=== PATIENT | male | born 1955 | race Caucasian/White ===

== ENCOUNTER 2019-08-24 14:33 | Inpatient (IN) | payer OTHER ==
[~2019-08-24] VITALS: Ht 190.5 cm; Wt 97.1 kg
[2019-08-24 14:34] VITALS: BP 162/111
[2019-08-24 14:46] LABS: ABSOLUTE NEUTROPHILS 7.6 thou/uL (1.4-8.2); BASOPHILS 0.9 % (0.0-2.0); EOSINOPHILS 1.4 % (0.0-3.0); HEMATOCRIT 50.7 % (42.0-52.0); HEMOGLOBIN 16.9 gm/dL (14.0-18.0); MCH 30.7 pg (26.0-34.0); MCHC 33.3 g/dL (28.0-37.0); MCV 92.3 fL (80.0-100.0); MONOCYTES 6.6 % (1.0-8.0); PLATELET COUNT 234 thou/uL (150-400); POLYS 67.1 % (36.0-66.0); RBC 5.49 mil/uL (4.50-6.00); RDW 15.4 % (10.5-14.5); WBC 11.3 thou/uL (4.0-11.0)
[2019-08-24 14:53] LABS: ANION GAP 8 mmol/L (7-16); BUN 19 mg/dL (7-18); CALCIUM 9.6 mg/dL (8.5-10.1); CHLORIDE 101 mmol/L (98-107); CO2 30 mmol/L (21-32); CREATININE 1.1 mg/dL (0.7-1.3); GLUCOSE 97 mg/dL (74-106); POTASSIUM 4.1 mmol/L (3.5-5.1); SODIUM 139 mmol/L (136-145)
[2019-08-24 15:02] LABS: TROPONIN-I <0.06 ng/mL (<0.06)
[2019-08-24 17:20] VITALS: BP 162/111
[2019-08-24 18:25] VITALS: BP 150/117
[2019-08-24 19:47] VITALS: BP 134/91
[2019-08-24] MEDS ORDERED: LISINOPRIL2.5 MG PO (20:37)
[2019-08-24] MEDS ORDERED: LOVASTATIN 20 M20 MG PO (20:38)
[2019-08-24] MEDS ORDERED: TOPROL XL100 MG PO (20:38)
[2019-08-24] MEDS ORDERED: PROAIR HFA8.5 GM INH (20:39)
[2019-08-24] MEDS ORDERED: DICYCLOMINE HCL20 MG PO (20:40)
[2019-08-24] MEDS ORDERED: MAGNESIUM250 M1 PO (20:41)
[2019-08-24] MEDS ORDERED: ASA81BEC PO (20:55)
[2019-08-24 21:33] VITALS: BP 141/110
--- NOTE | 2019-08-24 22:19 | NUR ---
PATIENT TRANSFERED FROM [facility] WITH C/O SOA, COUGH, AND CHF EXACERBATION. PATIENT PLACED ON ENHANCE PRECAUTIONS FOR COVID R/O. ASSUMED CARE OF PATIENT AT 1900. PATIENT BEGAN SHIFT ON RA WITH OXYGEN SATURATION 97% AND ABOVE. AT APPROXIMATELY 2210 PATIENT C/O SOA AFTER AMBULATING TO RESTROOM. APPLIED 2L OXYGEN VIA NC AND MEASURED OXYGEN SATUATIONS AT 95%. PATIENT ADMITTED TO ER WITH BP 150/117. ADMISSION ASSESSMENT B/P WAS 134/91. REASSESSMENT OF B/P TWO HOURS LATER WAS 140/110. OBTAINED A ONE TIME ORDER FOR 5MG LOPRESSOR AND ADMINISTERED ORDERED. WILL CONTINUE TO MONITOR.
[2019-08-25] VITALS (26 sets, daily range): BP systolic 103–147; BP diastolic 65–111
--- NOTE | 2019-08-25 04:12 | NUR ---
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 PT ASYMPTOMATIC WITH BP ELEVATED. CARDIZEM BOLUS GIVEN AND GTT INITIATED. PT CONTINUES TO DENY SYMPTOMS. WILL CONTINUE TO MONITOR.
--- NOTE | 2019-08-25 04:22 | NUR ---
AT 0235, PT HAD A 20 BEAT RUN OF VTACH; VS 147/111, P 105, 93% ON RA, RR 22. PT REPORTED WAKING UP FEELING SOB AND NEEDING TO CLEAR SECRETIONS IN HIS THROAT. STRUGGLED TO CLEAR AND SAT ON SIDE OF BED, MAKING HIM FEEL SLIGHTLY DIZZY. HR JUMPED TO 160-180 FOR ABOUT A MINUTE BEFORE GRADUALLY DROPPING TO 130'S THEN LOW 100'S. PT REPORTED FEELING SLIGHTLY BETTER, BUT STILL SOB. EVITA BRUCE NOTIFIED OF EVENTS AND OBTAINED ORDERS FOR CXR, MUCINEX, ALBUTEROL, MAGNESIUM, AND LABS. HR CONTINUED TO BE IRREGULAR BUT 95-100, PT DENIED FURTHER COMPLAINTS.
[2019-08-25 05:24] LABS: CALCIUM 9.1 mg/dL (8.5-10.1); CREATININE 1.3 mg/dL (0.7-1.3); POTASSIUM 3.5 mmol/L (3.5-5.1)
[2019-08-25 06:47] LABS: HEMOGLOBIN 16.4 gm/dL (14.0-18.0); MCHC 33.6 g/dL (28.0-37.0); MCV 92.5 fL (80.0-100.0); RBC 5.3 mil/uL (4.50-6.00)
[2019-08-25 09:59] LABS: CALCIUM 9.3 mg/dL (8.5-10.1); CREATININE 1.3 mg/dL (0.7-1.3); POTASSIUM 3.6 mmol/L (3.5-5.1)
--- NOTE | 2019-08-25 11:09 | EKG ---
[facility] [place] [address] ELECTROCARDIOGRAM REPORT Name: SARAH MODI Room #: 354-P ADM IN M.R.#: [id number] Admission: 08/24/19 Attend Phys: Colby Prakash MD Discharge: Date of : 53 Report #: [id number] THIS REPORT FOR: cc: FAM - Family physician unknown FAM - Family physician unknown Efrain Bazzi MD [facility] ~ THIS REPORT FOR: //name// [facility] ED Test Date: 2019-08-24 Test Time: 14:34:28 Pat Name: SARAH MODI Department: Room: [facility] Gender: M Airplane Engineer: [facility] : 1955 Requested By: Vaughn Galeana Order Number: [id number] MD: Efrain Bazzi Measurements Intervals [place] Rate: 110 P: 62 NE: 165 QRS: 94 QRSD: 92 T: -17 QT: 357 QTc: 484 Interpretive Statements Sinus tachycardia Multiple ventricular premature complexes Poor R wave progression Nonspecific ST and T wave abnormality No previous ECG available for comparison Electronically Signed On 08-25-2019 11:08:26 CDT by Efrain Bazzi [email or web address] <ELECTRONICALLY SIGNED> By: Efrain Bazzi MD, FACC 04/19/20 1108 1434 1434 Efrain Bazzi MD, [facility] /EPI
--- NOTE | 2019-08-25 11:10 | EKG ---
[facility] [place] [address] ELECTROCARDIOGRAM REPORT Name: SARAH MODI Room #: 354-P ADM IN M.R.#: [id number] Admission: 08/24/19 Attend Phys: Colby Prakash MD Discharge: Date of : 53 Report #: [id number] THIS REPORT FOR: cc: FAM - Family physician unknown FAM - Family physician unknown Efrain Bazzi MD [facility] ~ THIS REPORT FOR: //name// [facility] ED Test Date: 2019-08-24 Test Time: 15:42:48 Pat Name: SARAH MODI Department: Room: 354 P Gender: M Ergonomics Consultant: [facility] : 1955 Requested By: Vaughn Galeana Order Number: [id number] MD: Efrain Bazzi Measurements Intervals [place] Rate: 104 P: 37 [place]: 156 QRS: 74 QRSD: 91 T: -85 QT: 335 QTc: 441 Interpretive Statements Sinus tachycardia Multiple ventricular premature complexes Probable LVH with secondary repol abnrm Anterior Q waves, possibly due to LVH No previous ECG available for comparison Electronically Signed On 08-25-2019 11:09:22 CDT by Efrain Bazzi [email or web address] <ELECTRONICALLY SIGNED> By: Efrain Bazzi MD, [facility] 08/25/19 1109 1542 1542 Efrain Bazzi MD, [facility] /EPI
--- NOTE | 2019-08-25 11:19 | EKG ---
[facility] [place] [address] ELECTROCARDIOGRAM REPORT Name: SARAH MODI Room #: 354-P ADM IN M.R.#: [id number] Admission: 08/24/19 Attend Phys: Colby Prakash MD Discharge: Date of : 53 Report #: [id number] THIS REPORT FOR: cc: FAM - Family physician unknown FAM - Family physician unknown Efrain Bazzi MD [facility] THIS REPORT FOR: //name// [facility] Test Date: 2019-08-25 Test Time: 03:44:42 Pat Name: SARAH MODI Department: Room: 354 P Gender: M Breaker Hand: NICKY : 1955 Requested By: Colby Prakash Order Number: [id number] MD: Efrain Bazzi Measurements Intervals [place] Rate: 143 P: MS: QRS: 82 QRSD: 87 T: -85 QT: 340 QTc: 525 Interpretive Statements Atrial fibrillation Ventricular premature complex Probable LVH with secondary repol abnrm Anterior Q waves, possibly due to LVH Prolonged QT interval No previous ECG available for comparison Electronically Signed On 08-25-2019 11:17:43 CDT by Efrain Bazzi [email or web address] <ELECTRONICALLY SIGNED> By: Efrain Bazzi MD, FACC 08/25/19 1117 0344 0344 Efrain Bazzi MD, [facility] /EPI
--- NOTE | 2019-08-25 12:52 | NUR ---
PT CARE ASSUMED AT 0700, PT ALERT AND ORIENTED X4, DENIEA NAUSEA, VOMITING AND CHEST PAIN. PT STATES FEELING LITTLE DIZZINESS WHEN GETTING UP IN BED. PT IS ON ROOM AIR, OXYGEN SAT WNL, NO DISTRESS NOTED . ASSESSMENT COMPLETED. CARDIZEM DRIP DISCONTINUE PER ORDER. PT DENIES ANY NEEDS AT THE MOMENT. CALL LIGHT IN REACH AND BED AT LOWEST LEVEL. WILL CONTINUE TO MONITOR.
--- NOTE | 2019-08-25 19:41 | NUR ---
PT TRANSFERED TO 219, REPORT GIVEN TO GIANNI Raymond RN. PT FAMILY CALLED AND UPDATED.
[2019-08-26 00:14] VITALS: BP 135/83
[2019-08-26 04:58] VITALS: BP 149/97
[2019-08-26 06:07] LABS: CALCIUM 9.1 mg/dL (8.5-10.1); CREATININE 1.3 mg/dL (0.7-1.3); POTASSIUM 4.1 mmol/L (3.5-5.1)
--- NOTE | 2019-08-26 08:51 | EKG ---
[facility] [place] [address] ELECTROCARDIOGRAM REPORT Name: SARAH MODI Room #: 219-P ADM IN M.R.#: [id number] Admission: 08/24/19 Attend Phys: Colby Prakash MD Discharge: Date of : 53 Report #: [id number] THIS REPORT FOR: cc: BHAVANA - Family physician unknown FAM - Family physician unknown Efrain Bazzi MD [facility] ~ THIS REPORT FOR: //name// [facility] Test Date: 2019-08-26 Test Time: 07:20:49 Pat Name: SARAH MODI Department: Room: 219 P Gender: M Document Manager: MARY ANN : 1955 Requested By: Efrain Bazzi Order Number: [id number] MD: Efrain Bazzi Measurements Intervals [place] Rate: 89 P: [place]: QRS: 80 QRSD: 97 T: -71 QT: 361 QTc: 440 Interpretive Statements Atrial fibrillation Premature ventricular premature complexes Probable left ventricular hypertrophy Anterior Q waves, possibly due to LVH Nonspecific ST and T wave abnormality Compared to ECG 08/25/2019 03:44:42 Heart rate has slowed Electronically Signed On 08-26-2019 8:50:10 CDT by Efrain Bazzi [email or web address] <ELECTRONICALLY SIGNED> By: Efrain Bazzi MD, [facility] 08/26/19 0850 9 9 Efrain Bazzi MD, [facility] /EPI
--- NOTE | 2019-08-26 10:07 | 2DMMODE ---
[facility] [place] [address] 2 D/M-MODE ECHOCARDIOGRAM Name: SARAH MODI Room #: 219-P ADM IN M.R.#: [id number] Admission: 08/24/19 Attend Phys: Colby Prakash MD Discharge: Date of : 53 Report #: [id number] THIS REPORT FOR: cc: FAM - Family physician unknown FAM - Family physician unknown Pravin Dominguez MD ~ APPROVED REPORT Study performed: 08/26/2019 09:02:48 EXAM: Comprehensive 2D, Doppler, and color-flow Echocardiogram Patient Location: Bedside Room #: 219 Status: routine BSA: 2.11 HR: 96 bpm BP: 112/91 mmHg Rhythm: Atrial Fibrillation Other Information Study Quality: Adequate Indications Congestive Heart Failure Atrial Fibrillation Hypertension/HDD SOA, HLD 2D Dimensions RVDd: 38.22 mm IVSd: 11.23 (7-11mm) LVOT Diam: 21.33 (18-24mm) LVDd: 46.20 mm PWd: 12.36 (7-11mm) Ascending Ao: 28.77 (22-36mm) LVDs: 41.49 (25-40mm) Aortic Root: 31.73 mm IVC: 20.00 mm Volumes Left Atrial Volume (Systole) Single Plane 4CH: 46.36 mL Single Plane 2CH: 83.27 mL LA ESV Index: 31.00 mL/m2 Aortic Valve AoV Peak Elias.: 1.35 m/s AO Peak Gr.: 7.28 mmHg LVOT Max P.02 mmHg [facility] [address] [place] [address] 2 D/M-MODE ECHOCARDIOGRAM Name: SARAH MODI Room #: 219-P ADM IN M.R.#: [id number] Admission: 08/24/19 Attend Phys: Colby Prakash MD Discharge: Date of : 53 Report #: [id number] LVOT Max V: 0.71 m/s SHARMIN Vmax: 1.88 cm2 Mitral Valve MV Decel. Time: 142.37 ms MV E Max Elias.: 1.27 m/s IVRT: 74.39 ms Pulmonary Valve PV Peak Elias.: 0.84 m/s PV Peak Gr.: 2.86 mmHg Tricuspid Valve TR Peak Elias.: 3.08 m/s RAP Estimate: 5.00 mmHg TR Peak Gr.: 37.91 mmHg PA Pressure: 43.00 mmHg Left Ventricle The left ventricle is normal size. There is global hypokinesis of the left ventricle. Borderline concentric left ventricular hypertrophy. Left ventricular systolic function is severely decreased. LVEF is 20%. This study is not technically sufficient to allow evaluation of the LV diastolic function due to atrial fibrillation. Right Ventricle The right ventricle is normal size. Right ventricle is mildly hypokinetic. Atria The left atrium size is normal. Right atrium is mildly dilated. Aortic Valve Aortic valve is mildly calcified. No aortic regurgitation is present. There is no aortic valvular stenosis. Mitral Valve The mitral valve is normal in structure. Moderate to severe mitral regurgitation No evidence of mitral valve stenosis. Tricuspid Valve The tricuspid valve is normal in structure. Moderate to severe tricuspid regurgitation. PAP is estimated at 43 mmHg. Pulmonic Valve Pulmonic valve is not well visualized. There is no pulmonic valvular regurgitation. [facility] [address] [place] [address] 2 D/M-MODE ECHOCARDIOGRAM Name: SARAH MODI Room #: 219-P [facility] IN M.R.#: [id number] Admission: 08/24/19 Attend Phys: Colby Prakash MD Discharge: Date of : 53 Report #: [id number] Great Vessels The aortic root is normal in size. IVC is upper limits of normal in size and collapses >50% with inspiration. Pericardium There is no pericardial effusion. <Conclusion> The left ventricle is normal size. Left ventricular systolic function is severely decreased. LVEF is 20%. There is global hypokinesis of the left ventricle. Right ventricle is mildly hypokinetic. Right atrium is mildly dilated. Aortic valve is mildly calcified. No aortic regurgitation is present. There is no aortic valvular stenosis. The mitral valve is normal in structure. Moderate to severe mitral regurgitation The tricuspid valve is normal in structure. Moderate to severe tricuspid regurgitation. PAP is estimated at 43 mmHg. Pulmonic valve is not well visualized. There is no pericardial effusion. <ELECTRONICALLY SIGNED> By: Pravin Dominguez MD 08/26/19 1005 04 04 Pravin Dominguez MD /INF
[2019-08-26 12:00] VITALS: BP 74/54; BP 82/56
[2019-08-26 14:24] VITALS: BP 100/77
[2019-08-26 16:00] VITALS: BP 84/66
--- NOTE | 2019-08-26 16:30 | NUR ---
Attempted to sp with patient, called in room no answer.
--- NOTE | 2019-08-26 17:23 | NUR ---
ASSUMED CARE OF PT AT SHIFT CHANGE. ASSESSMENTS CHARTED. MEDS GIVEN PER JUL. PT A&OX4. CARDIZEM INFUSING AT 10, HR TRENDED DOWN TO 70-80, REDUCED CARDIZEM TO 5. CALLIE ORDERED TO TAPER AND DC WHEN POSSIBLE. PT HYPOTENSIVE IN AM, EXPERIENCED SEVERE ABDOMINAL PAIN AND PROFUSE SWEATING WHILE TRYING TO HAVE BM, BECOMING HYPERTENSIVE. MOVED TO BED, GAVE GAS-X, CALLED PHYSICAN WHO ORDERED AB XRAY. CALLIE ORDERED LASIX AND POTASSIUM TO HOLD. WILL CONTINUE TO MONITOR AND FOLLOW POC.
[2019-08-26 18:28] LABS: HEMATOCRIT 50.9 % (42.0-52.0); HEMOGLOBIN 16.5 gm/dL (14.0-18.0); MCH 30.4 pg (26.0-34.0); MCHC 32.4 g/dL (28.0-37.0); MCV 93.8 fL (80.0-100.0); RBC 5.42 mil/uL (4.50-6.00); RDW 15.5 % (10.5-14.5); WBC 18.8 thou/uL (4.0-11.0)
[2019-08-26 20:13] VITALS: BP 105/68
[2019-08-27] VITALS (7 sets, daily range): BP systolic 109–149; BP diastolic 73–90
--- NOTE | 2019-08-27 04:50 | NUR ---
ASSUMED PT CARE AT THE CHANGE OF SHIFT, PT IS A&OX4, ON CARDIZEM DRIP INFUSING AT 5, AFIB ON THE MONITOR WITH CONTROLLED HR, SR AT 0200, COMPLAINED OF RLQ ABDOMINAL PAIN, PAIN MEDICATION GIVEN PRN ORDERED, PT STATES THAT THE ABDOMEN IS SORE, PT HAD 3 WATERY STOOLS, CARBURIZING FURNACE OPERATOR NOTIFIED AND ORDERED A STOOL SAMPLE, SAMPLE SEND TO LAB, CT TO THE ABDOMEN WAS DONE AND RESULTS AVAILABLE, DENIES CHEST PAIN OR SOB, VS STABLE, ASSESSMENTS CHARTED, STATES FEELING BETTER AFTER HAVING COUPLE STOOLS, PT LAYING IN BED AT THIS TIME, WILL CONTINUE TO MONITOR
--- NOTE | 2019-08-27 08:42 | EKG ---
[facility] [place] [address] ELECTROCARDIOGRAM REPORT Name: SARAH MODI Room #: 219-P ADM IN M.R.#: [id number] Admission: 08/24/19 Attend Phys: Colby Prakash MD Discharge: Date of : 53 Report #: [id number] THIS REPORT FOR: cc: BHAVANA - Family physician unknown FAM - Family physician unknown Efrain Bazzi MD [facility] ~ THIS REPORT FOR: //name// [facility] Test Date: 2019-08-27 Test Time: 07:59:22 Pat Name: SARAH MODI Department: Room: 219 P Gender: M Manufacturing Quality Inspector: MARY ANN : 1955 Requested By: Efrain Bazzi Order Number: [id number] MD: Efrain Bazzi Measurements Intervals [place] Rate: 81 P: 34 NE: 163 QRS: 58 QRSD: 99 T: -61 QT: 499 QTc: 580 Interpretive Statements Sinus rhythm Probable left ventricular hypertrophy Anterior Q waves, possibly due to LVH Nonspecific ST and T wave abnormality Prolonged QT interval Compared to ECG 08/26/2019 07:20:49 Sinus rhythm has replaced atrial fibrillation Electronically Signed On 08-27-2019 8:40:55 CDT by Efrain Bazzi [email or web address] <ELECTRONICALLY SIGNED> By: Efrain Bazzi MD, [facility] 08/27/19 0840 0759 0759 Efrain Bazzi MD, FAC /EPI
[2019-08-27 09:03] LABS: HEMATOCRIT 50.1 % (42.0-52.0); HEMOGLOBIN 16.5 gm/dL (14.0-18.0); MCH 30.3 pg (26.0-34.0); MCHC 32.9 g/dL (28.0-37.0); RBC 5.44 mil/uL (4.50-6.00); RDW 14.9 % (10.5-14.5); WBC 13.9 thou/uL (4.0-11.0)
--- NOTE | 2019-08-27 10:18 | NUR ---
School Photograph Editor talked to, Cardizem drip stopped at 1000. will follow PRN.
--- NOTE | 2019-08-27 11:36 | NUR ---
spoke with patient via phone. patient resides in independent home in [place] with . 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 Coont to drive. Discussed [place] of [place]hab [place] Patient reports he strongly wants to return home. He misses being at home. Therapy evals in process. 5N to eval. Tonigmgt following
--- NOTE | 2019-08-27 19:51 | NUR ---
A/O, calm and cooprative; denied pain; SR, HR within normal. afebrile. no n/v. BM once. bed rest.
[2019-08-28 04:30] VITALS: BP 115/69
--- NOTE | 2019-08-28 05:10 | NUR ---
PT ALERT AND ORIENTED. NO FEVER. ISOLATION MAITAINED. DENIES SOB, CHEST PAIN, NAUSEA OR VOMITING. NPO SINCE MIDNIGHT FOR FLEX SIG. CONSENT SIGNED IN PT CHART. NO FURTHER C/O. WILL CONTINUE TO MONITOR.
[2019-08-28 05:13] LABS: ABSOLUTE NEUTROPHILS 7.5 thou/uL (1.4-8.2); BASOPHILS 0.5 % (0.0-2.0); EOSINOPHILS 0.4 % (0.0-3.0); HEMATOCRIT 44.1 % (42.0-52.0); HEMOGLOBIN 14.9 gm/dL (14.0-18.0); LYMPHOCYTES 14.7 % (24.0-44.0); MCH 30.9 pg (26.0-34.0); MCHC 33.8 g/dL (28.0-37.0); MCV 91.5 fL (80.0-100.0); MONOCYTES 7.9 % (1.0-8.0); PLATELET COUNT 190 thou/uL (150-400); POLYS 76.5 % (36.0-66.0); RBC 4.83 mil/uL (4.50-6.00); RDW 15.3 % (10.5-14.5); WBC 9.8 thou/uL (4.0-11.0)
[2019-08-28 05:33] LABS: CALCIUM 8.2 mg/dL (8.5-10.1); CREATININE 1.7 mg/dL (0.7-1.3); POTASSIUM 3.8 mmol/L (3.5-5.1)
[2019-08-28 07:15] VITALS: BP 122/81
--- NOTE | 2019-08-28 09:40 | NUR ---
FAXED REFERRAL TO [facility] SPOKE WITH YURY IN INTAKE SHE RECEIVED REFERRAL AND CAN ACCEPT PT AT DISCHARGE IF HE GOES HOME. DP TO FOLLOW.
[2019-08-28 11:20] VITALS: BP 124/86
--- NOTE | 2019-08-28 15:44 | NUR ---
Sp with patient via phone. Discussed how he felt he did with therapy. patient reports he does not want post acute care he strongly wants to return [place]. [facility] is accepting for home with care. patient reports his will be avail to assist him at home.
[2019-08-28 16:30] VITALS: BP 120/78
--- NOTE | 2019-08-28 16:39 | NUR ---
ASSUMED CARE OF PT AT SHIFT CHANGE. ASSESSEMENTS CHARTED. MEDS GIVEN PER MAR. PT A&OX4, NO C/O PAIN. FLEX SIG COLONOSCOPY COMPLETE THIS AM. PT TO BE NPO AFTER MN FOR AN AB&DOPPLER ULTRASOUND TOMORROW AM. PT IS NSR ON THE MONITOR. WILL CONTINUE TO MONITOR AND FOLLOW POC.
--- NOTE | 2019-08-28 17:34 | P ---
[facility] [place] [address] PROCEDURE REPORT Name: SARAH MODI Room #: 219-P ADM IN M.R.#: [id number] Admission: 08/24/19 Attend Phys: Colby Prakash MD Discharge: Date of : 53 Report #: [id number] THIS REPORT FOR: cc: FAM - Family physician unknown FAM - Family physician unknown Newton Sy MD ~ CC: Colby Bazzi MD [facility] unknown DATE OF SERVICE: 08/28/2019 PROCEDURE PERFORMED: Flexible sigmoidoscopy with biopsies. HISTORY OF PRESENT ILLNESS: The patient is a 64-year-old male with multiple medical problems with abdominal pain in the right lower quadrant. CT scan of the abdomen and pelvis was performed on 08/26/2019. He has a significantly dilated proximal colon to the level of the splenic flexure. The transition zone shows the entire descending colon thick walled likely related to colitis, either infectious or inflammatory, although colonic neoplasm is less likely. The patient is on Flagyl at this time. His last colonoscopy was greater than 25 years ago. No family history of colon cancer. He denies any blood in his stools, but he has been having diarrhea. Plan is for flexible sigmoidoscopy. DESCRIPTION OF PROCEDURE: The risks and benefits of the procedure were explained to the patient, those risks including but not limited to bleeding, perforation, and the risk of sedation. He understood these risks and gave informed consent. Sedation was given using propofol per anesthesia. Next, a digital rectal exam was initially performed, which was normal. Next, using a standard Olympus colonoscope, the scope was placed in the patient's anus and advanced under direct vision up to approximately the area of the splenic flexure, at which point severe colitis was noted with multiple ulcerations. This endoscopic appearance is consistent with ischemic colitis. I tried several times to advance the scope through this area; however, it was narrowed. I did not want to push too hard due to increased risk for perforation. I was not able to advance the scope through this area. Multiple biopsies were obtained. The severe colitis was noted again near the splenic flexure area most likely; however, there was a colitis noted in the descending and sigmoid colon without ulcerations. Biopsies were also obtained in the sigmoid colon. No evidence of bleeding throughout the exam. The overall prep was fairly good. The rectal mucosa was normal. On retroflexion, small nonbleeding internal hemorrhoids were noted. The scope was then withdrawn and the procedure terminated. The patient tolerated the procedure well. [address] [address] PROCEDURE REPORT Name: SARAH MODI Room #: 219-P [facility] IN M.R.#: [id number] Admission: 08/24/19 Attend Phys: Colby Prakash MD Discharge: Date of : 53 Report #: [id number] IMPRESSION: 1. Severe colitis involving the splenic flexure area, likely ischemic colitis causing a near obstruction, unable to pass the scope through this area. 2. Colitis involving the descending colon. 3. Internal hemorrhoids. RECOMMENDATIONS: 1. Await biopsy results. 2. Would recommend continuing liquids at this time and Flagyl. 3. We will review CT scan for further evaluation of inferior mesenteric artery. If this was patent, may need to consider an ultrasound with Dopplers of mesenteric vessels as well. The patient's abdomen is soft at this time. He is having bowel movements. General Surgery is also following. Thank you for allowing me to participate in his care. <ELECTRONICALLY SIGNED> By: Newton Sy MD 08/28/19 1734 1008 1019 Newton Sy MD /nt
[2019-08-28 19:29] VITALS: BP 128/82
[2019-08-29] VITALS (7 sets, daily range): BP systolic 119–137; BP diastolic 77–102
[2019-08-29 05:42] LABS: CALCIUM 8.1 mg/dL (8.5-10.1); CREATININE 1.3 mg/dL (0.7-1.3); POTASSIUM 4.1 mmol/L (3.5-5.1)
--- NOTE | 2019-08-29 05:42 | NUR ---
CARE ASSUMED 1900. PT ALERT AND ORIENTED. C/O MINIMAL ABDOMINAL SORENESS. VSS. VSS. DENIES NAUSEA,OR VOMITING. NO CHEST PAIN REPORTED. SR ON THE MONITOR. RATE CONTROLED. NO FURTHER CONCERNS. ABDOMINAL ULTRASOUND THIS MORNING. WILL CONTINUE TO MONITOR.
--- NOTE | 2019-08-29 13:53 | NUR ---
Update given to pt's Radha. Possible dc home with HH per the [facility] in 1-2 days. She is agreeable. PCP is Dr. Bandar Bell. [facility] updated as well. Pt had US today and is eating a litte better. Dc summary and instructions will need to be faxed to the [facility] at dc [phone] and confirmed with their chronic specialist rn [phone] if dc'd over the weekend.
--- NOTE | 2019-08-29 14:07 | PATH ---
[facility] [address] [place] [address] PATHOLOGY RPT PROCEDURE Name: SARAH CONTRERAS Room #: 219-P ADM IN M.R.#: [id number] Admission: 08/24/19 Date of : 53 Discharge: Report #: [id number] Path Case #: [id number] [facility] Accession Number: [id number] . 01 Material submitted: . PART A: splenic flexure - BIOPSY OF SPLENIC FLEXURE RULE OUT ISCHEMIA COLITIS PART B: sigmoid colon - BIOPSY OF SIGMOID COLITIS RULE OUT ISCHEMIA COLITIS . 01 Clinical history: . Abdominal pain, abnormal CT scan Rule out ischemic colitis . 02 Diagnosis: A. Large intestine mucosa, splenic flexure R/O ischemic colitis, endoscopic biopsy: - Compatible with ischemic colitis. - Negative for dysplasia or malignancy. . B. Large intestine mucosa, sigmoid colitis R/O ischemic colitis, endoscopic biopsy: - Mild active colitis. (Please see comment) - Negative for dysplasia or malignancy. (IUV:ilana; 08/29/2019) QMS 08/29/2019 1203 Local . 02 Comment: A. Examination shows patchy involvement of the fragments sampled with regenerative surface epithelium, crypt ghosts, expanded lamina propria, as well as ulceration. Findings are compatible with ischemic colitis. Fibrin thrombi are not identified within the lamina propria vessels; however, does not preclude the diagnosis. The sigmoid colitis biopsy tissue shows cryptitis, expanded lamina propria, as well as involvement of most fragments sampled. The differential diagnosis includes infectious-type of colitis, acute diverticulitisis, medication/drug induced colitis as well as early inflammatory bowel disease. Clinical correlation is suggested. (IUV:ilana; 08/29/2019) . 02 Electronically signed: . Samantha Bhatia MD, Pathologist NPI- [id number] . 01 Gross description: . A. The specimen is received in formalin, labeled "Sarah Contreras, BX of splenic flexure" and consists of multiple fragments of pink-ram tissue measuring 1.3 x 1.0 x 0.3 cm in aggregate [place] [address] PATHOLOGY RPT PROCEDURE Name: SARAH CONTRERAS Room #: 219-P ADM IN M.R.#: [id number] Admission: 08/24/19 Date of : 53 Discharge: Report #: [id number] Path Case #: [id number] A1. . B. The specimen is received in formalin, labeled "Sarah Contreras BX of sigmoid colitis" and consists of 2 fragments of pink-ram tissue measuring 0.3 x 0.3 cm and 0.5 x 0.3 cm which are entirely submitted in B1. (SDY; 08/28/2019) SYU/SYU 08/28/2019 1435 Local . 02 Pathologist provided ICD-10: K52.9 . 02 CPT . 662727, [id number] Specimen Comment: A courtesy copy of this report has been sent to [phone] Specimen Comment: Report sent to Performed at: [address], [place], [place] [id number] MD Mian Saavedra MD Phone: [phone] Performed at: [address] [id number] MD Samantha Bhatia MD Phone: [phone]
--- NOTE | 2019-08-29 16:57 | NUR ---
PT ALERT AND ORIENTED. DENIED HAVING PAIN OR DISCOMFORT. VSS. NE ORDERS NOTED. UPDATED ON PT'S PROGRESS. WILL CONTINUE TO MONITOR.
[2019-08-30 04:01] VITALS: BP 128/88
--- NOTE | 2019-08-30 06:49 | NUR ---
NO EVENTS OVERNIGHT. PT AOX4.VSS. 2L OF O2 FOR COMFORT DUE TO SOB. PT WOULD LIKE TO DISCHARGE. FAMILY CALLED TO [facility] ABOUT DISCHARGE. NO CHEST PAIN, NAUSEA OR VOMITING NOTED. WILL CONTINUE WITH POC.
[2019-08-30 07:40] VITALS: BP 127/82
[2019-08-30] MEDS ORDERED: KLOR-CON M2020 MEQ PO (08:16)
[2019-08-30] MEDS ORDERED: LIPITOR 20 MG T20 M1 PO (08:16)
[2019-08-30] MEDS ORDERED: LISINOPRIL10 MG PO (08:16)
[2019-08-30] MEDS ORDERED: PACERONE200 MG PO ×2 (08:16)
[2019-08-30] MEDS ORDERED: FUROSEMIDE 40 M40 MG PO (08:16)
[2019-08-30] MEDS ORDERED: METOPROLOL SUCC50 MG PO ×2 (08:16)
[2019-08-30 10:48] VITALS: BP 134/102
[2019-08-30 11:31] VITALS: BP 134/102
--- NOTE | 2019-08-30 11:32 | NUR ---
Pt doing well today. Good po intake and up ad angelique. Dc home today. No hh f/u indicated. Will cancel referral with the [facility].
--- NOTE | 2019-08-30 11:39 | NUR ---
PT A&OX4, VSS, DENIES PAIN. PATIENT ANXIOUS ON DISCHARGING. PATIENT DENIES SOA AND ABDOMINAL PAIN. ABDOMEN DISTENDED AND SOFT, ACTIVE BOWEL SOUNDS. NO SIGNS OF DISTRESS. WILL CONTINUE TO MONITOR.
[2019-08-30 12:33] VITALS: BP 134/102
[2019-08-30] MEDS ORDERED: KEFLEX500 M1 PO (12:33)
[2019-08-30] MEDS ORDERED: METRONIDAZOLE500 M4 PO (12:33)
--- NOTE | 2019-08-30 14:21 | NUR ---
NOTIFIED BRANDEN FROM [facility] THAT PT IS DISCHARGING TODAY TO HOME WITH SELF CARE.
== END 2019-08-30 14:40 | disposition home or self-care (01) | DRG 291 ==
LOC: ER 14:33 → 3W 18:16 → 2N 18:16
PROVIDERS: Emergency Medicine; Internal Medicine; Nurse Practitioner Family; ADMIT Hospitalist
PROC: 0DBL8ZX Excision of Transverse Colon, Via Natural or Artificial Opening Endoscopic, Diagnostic (ICD-10-PCS; principal; 2019-08-24)
PROC: 0DBN8ZX Excision of Sigmoid Colon, Via Natural or Artificial Opening Endoscopic, Diagnostic (ICD-10-PCS; principal; 2019-08-24)
DX: I11.0 Hypertensive heart disease with heart failure (principal); J96.00 Acute respiratory failure, unspecified whether with hypoxia or hypercapnia; J12.9 Viral pneumonia, unspecified; I48.19 Other persistent atrial fibrillation; K55.9 Vascular disorder of intestine, unspecified; K56.600 Partial intestinal obstruction, unspecified as to cause; K59.39 Other megacolon; I50.23 Acute on chronic systolic (congestive) heart failure; K64.8 Other hemorrhoids; E78.5 Hyperlipidemia, unspecified; R91.1 Solitary pulmonary nodule; F17.210 Nicotine dependence, cigarettes, uncomplicated; I48.0 Paroxysmal atrial fibrillation; I42.9 Cardiomyopathy, unspecified; G47.00 Insomnia, unspecified; J44.9 Chronic obstructive pulmonary disease, unspecified; K21.9 Gastro-esophageal reflux disease without esophagitis; K58.9 Irritable bowel syndrome, unspecified; Z20.828 Contact with and (suspected) exposure to other viral communicable diseases; Z79.01 Long term (current) use of anticoagulants; Z91.14 Patient's other noncompliance with medication regimen; Z79.82 Long term (current) use of aspirin; Z79.899 Other long term (current) drug therapy; Z71.6 Tobacco abuse counseling
CPT/HCPCS: 10081; 10879; 62110; 62900; 70005